=== PATIENT | female | born 1965 | race Two or more races ===

== ENCOUNTER 2017-08-14 17:27 | Emergency (ER) | payer MEDICAID ==
[~2017-08-14] VITALS: Ht 167.6 cm; Wt 86.6 kg
[2017-08-14] MEDS ORDERED: ASPirin 325 MG TAB PO ONE (18:15)
[2017-08-14 18:20] LABS: Basophils # (auto) 0 uL; Basophils % (auto) 0.5 % (0.0-2.0); Eosinophils # (auto) 0 uL; Eosinophils % (auto) 0.6 % (0.0-7.0); Hematocrit 41.6 % (36.0-46.0); Hemoglobin 14.1 g/dL (12.2-16.2); Lymphocytes # (auto) 1.7 uL; Lymphocytes % (auto) 24.5 % (10.0-50.0); Mean Corpuscular Hemoglobin 31.2 pg (28.0-32.0); Mean Corpuscular Volume 91.7 fL (80.0-100.0); Monocytes # (auto) 0.3 uL; Monocytes % (auto) 4.9 % (0.0-12.0); Neutrophils # (auto) 4.7 uL; Neutrophils % (auto) 69.5 % (37.0-80.0); Nucleated Red Blood Cells % 0.1 %; Platelet Count (auto) 153 10^3/uL (140-450); Red Blood Cells 4.54 10^6/uL (4.0-5.20); Red Cell Distribution Width 12.7 % (11.8-14.3); White Blood Cell 6.8 10^3/uL (4.4-10.8)
[2017-08-14 18:37] LABS: Alanine Aminotransferase 39 U/L (13-56); Albumin 3.7 g/dL (3.4-5.0); Anion Gap 10 (5-15); Aspartate Aminotransferase 30 U/L (15-37); BUN/Creatinine Ratio 17.6; Blood Urea Nitrogen 13 mg/dL (7-18); Carbon Dioxide 24 mmol/L (21-32); Chloride 104 mmol/L (98-107); GFR African American 106 mL/min; GFR Non-African American 87 mL/min; Glucose 145 mg/dL (74-106); Magnesium 1.9 mg/dL (1.6-2.6); Potassium 3.4 mmol/L (3.5-5.1); Sodium 138 mmol/L (136-145)
[2017-08-14 18:42] LABS: Alkaline Phosphatase 136 U/L (45-117); Bilirubin, Total 0.3 mg/dL (0.2-1.0); Total Protein 7.9 g/dL (6.4-8.2)
[2017-08-14 18:47] LABS: Urine Bacteria NONE SEEN /hpf (None Seen); Urine Blood Negative /uL (Negative); Urine Specific Gravity 1.016 (1.001-1.035); Urine WBC <1 /hpf (0 - 5)
[2017-08-14 21:20] VITALS: BP 131/77
== END 2017-08-14 21:20 | disposition home or self-care (01) ==
LOC: ER 17:35
DX: R07.89 Other chest pain (principal); F41.9 Anxiety disorder, unspecified; E11.9 Type 2 diabetes mellitus without complications; I10 Essential (primary) hypertension; Z79.82 Long term (current) use of aspirin
CPT/HCPCS: 36415; 71045; 80053; 81001; 83735; 84484; 85025; 93005

== ENCOUNTER 2018-09-30 20:09 | Emergency (ER) | payer MEDICAID ==
[~2018-09-30] VITALS: Ht 165.1 cm; Wt 84.4 kg
[2018-09-30 22:49] LABS: Basophils # (auto) 0 uL; Basophils % (auto) 0.7 % (0.0-2.0); Eosinophils # (auto) 0.2 uL; Eosinophils % (auto) 2.9 % (0.0-7.0); Hematocrit 43.1 % (36.0-46.0); Hemoglobin 14.3 g/dL (12.2-16.2); Lymphocytes % (auto) 34.1 % (10.0-50.0); Mean Corpuscular Hemoglobin 30.6 pg (28.0-32.0); Mean Corpuscular Hgb Conc. 33.2 g/dL (32.0-36.0); Mean Corpuscular Volume 92.3 fL (80.0-100.0); Monocytes # (auto) 0.4 uL; Monocytes % (auto) 7.6 % (0.0-12.0); Neutrophils # (auto) 3.2 uL; Neutrophils % (auto) 54.7 % (37.0-80.0); Nucleated Red Blood Cells % 0.1 %; Platelet Count (auto) 141 10^3/uL (140-450); Red Blood Cells 4.66 10^6/uL (4.0-5.20); Red Cell Distribution Width 12.8 % (11.8-14.3); White Blood Cell 5.8 10^3/uL (4.4-10.8)
[2018-09-30 22:55] LABS: Urine Bacteria NONE SEEN /hpf (None Seen); Urine Blood Negative /uL (Negative); Urine Specific Gravity 1.001 (1.001-1.035); Urine WBC 1 /hpf (0 - 5)
[2018-09-30 23:06] LABS: Albumin 3.8 g/dL (3.4-5.0); Anion Gap 7 (5-15); BUN/Creatinine Ratio 16.4; Blood Urea Nitrogen 10 mg/dL (7-18); Carbon Dioxide 27 mmol/L (21-32); Chloride 107 mmol/L (98-107); GFR African American 131 mL/min; GFR Non-African American 109 mL/min; Glucose 103 mg/dL (74-106); Magnesium 2.3 mg/dL (1.6-2.6); Potassium 3.3 mmol/L (3.5-5.1); Sodium 141 mmol/L (136-145)
[2018-09-30 23:24] LABS: Alanine Aminotransferase 34 U/L (13-56); Alkaline Phosphatase 113 U/L (45-117); Aspartate Aminotransferase 24 U/L (15-37); Bilirubin, Total 0.5 mg/dL (0.2-1.0); Total Protein 7.4 g/dL (6.4-8.2)
[2018-10-01 06:22] VITALS: BP 97/62
== END 2018-10-01 06:54 | disposition home or self-care (01) ==
LOC: ER 20:11
DX: R07.89 Other chest pain (principal); E87.6 Hypokalemia; M79.602 Pain in left arm; R10.9 Unspecified abdominal pain; E11.9 Type 2 diabetes mellitus without complications; E78.5 Hyperlipidemia, unspecified; I10 Essential (primary) hypertension
CPT/HCPCS: 36415; 71046; 80053; 81001; 81025; 83735; 84443; 84484; 85025; 93005

== ENCOUNTER 2021-09-11 14:11 | Emergency (ER) | payer MEDICAID ==
[~2021-09-11] VITALS: Ht 165.1 cm; Wt 79.4 kg
[2021-09-11 15:38] LABS: Basophils # (auto) 0 10 ^3/uL (0-0.2); Basophils % (auto) 0.6 % (0.0-2.0); Eosinophils # (auto) 0.1 10 ^3/uL (0-0.8); Hemoglobin 13.5 g/dL (12.2-16.2); Lymphocytes # (auto) 0.9 10 ^3/uL (0.4-5.4); Lymphocytes % (auto) 18.3 % (10.0-50.0); Mean Corpuscular Hemoglobin 30.5 pg (28.0-32.0); Mean Corpuscular Hgb Conc. 33.8 g/dL (32.0-36.0); Mean Corpuscular Volume 90.1 fL (80.0-100.0); Monocytes # (auto) 0.3 10 ^3/uL (0-1.3); Neutrophils # (auto) 3.7 10 ^3/uL (1.6-8.6); Neutrophils % (auto) 74.1 % (37.0-80.0); Nucleated Red Blood Cells % 0.1 %; Red Blood Cells 4.43 10^6/uL (4.0-5.20); Red Cell Distribution Width 14.3 % (11.8-14.3)
[2021-09-11 15:52] LABS: Anion Gap 6 (5-15); Blood Urea Nitrogen 10 mg/dL (7-18); Calcium 9.1 mg/dL (8.5-10.1); Carbon Dioxide 25 mmol/L (21-32); Chloride 107 mmol/L (98-107); Glucose 118 mg/dL (74-106); Potassium 3.6 mmol/L (3.5-5.1); Sodium 138 mmol/L (136-145)
[2021-09-11 15:57] LABS: Alanine Aminotransferase 33 U/L (13-56); Alkaline Phosphatase 89 U/L (45-117); Aspartate Aminotransferase 19 U/L (15-37); BUN/Creatinine Ratio 15.2; Bilirubin, Total 0.6 mg/dL (0.2-1.0); GFR African American 119 mL/min; GFR Non-African American 98 mL/min; Total Protein 7.6 g/dL (6.4-8.2)
[2021-09-11] MEDS ORDERED: ALPR0.5T PO (16:37)
[2021-09-11 16:45] VITALS: BP 140/80
== END 2021-09-11 16:46 | disposition home or self-care (01) ==
LOC: ER 14:11
DX: R00.2 Palpitations (principal); F41.9 Anxiety disorder, unspecified; E11.9 Type 2 diabetes mellitus without complications; E78.5 Hyperlipidemia, unspecified; I10 Essential (primary) hypertension
CPT/HCPCS: 36415; 71046; 80053; 83735; 84443; 84484; 85025; 93005

== ENCOUNTER 2022-04-11 13:16 | Emergency (ER) | payer MEDICAID ==
[~2022-04-11] VITALS: Ht 167.6 cm; Wt 77.2 kg
[~2022-04-11 13:16] MED LIST: ALPR0.5T PO; NAP500T PO
[2022-04-11 15:00] VITALS: BP 122/87
[2022-04-11] MEDS ORDERED: KETOROLAC TROMETH 60MG/2ML VIAL IM ONE (15:30)
[2022-04-11] MEDS ORDERED: IBUP800T27 PO (16:11)
== END 2022-04-11 16:14 | disposition home or self-care (01) ==
LOC: ER 13:20
DX: M75.32 Calcific tendinitis of left shoulder (principal); E11.9 Type 2 diabetes mellitus without complications; I10 Essential (primary) hypertension; E78.5 Hyperlipidemia, unspecified
CPT/HCPCS: 73030; 93005; 96372; 99283; J1885

== ENCOUNTER 2022-07-21 17:26 | Emergency (ER) | payer MEDICAID ==
[~2022-07-21 17:26] MED LIST changes: +IBUP800T27 PO
[2022-07-21] MEDS ORDERED: PANTOPRAZOLE 40 MG TAB PO ONE (21:00)
[2022-07-21] MEDS ORDERED: PANT40TA2 PO (21:00)
[2022-07-21 22:55] VITALS: BP 131/72
== END 2022-07-21 22:57 | disposition home or self-care (01) ==
LOC: ER 17:26
DX: T18.108A Unspecified foreign body in esophagus causing other injury, initial encounter (principal); K21.9 Gastro-esophageal reflux disease without esophagitis; E11.9 Type 2 diabetes mellitus without complications; E78.5 Hyperlipidemia, unspecified; I10 Essential (primary) hypertension; W22.8XXA Striking against or struck by other objects, initial encounter; Y93.89 Activity, other specified; Y92.89 Other specified places as the place of occurrence of the external cause; Y99.8 Other external cause status
CPT/HCPCS: 70360

== ENCOUNTER 2022-08-22 18:41 | Emergency (ER) | payer MEDICAID ==
[~2022-08-22] VITALS: Ht 167.6 cm; Wt 77.2 kg
[~2022-08-22 18:41] MED LIST changes: +PANT40TA2 PO
[2022-08-22] MEDS ORDERED: traMADol HCL 50 MG TAB PO ONE (19:15)
[2022-08-22 19:31] LABS: Basophils # (auto) 0 10 ^3/uL (0-0.2); Basophils % (auto) 0.7 % (0.0-2.0); Eosinophils # (auto) 0.1 10 ^3/uL (0-0.8); Eosinophils % (auto) 1.6 % (0.0-7.0); Hematocrit 39.8 % (36.0-46.0); Hemoglobin 13.4 g/dL (12.2-16.2); Lymphocytes # (auto) 1.7 10 ^3/uL (0.4-5.4); Lymphocytes % (auto) 27.2 % (10.0-50.0); Mean Corpuscular Hemoglobin 30.4 pg (28.0-32.0); Mean Corpuscular Hgb Conc. 33.8 g/dL (32.0-36.0); Mean Corpuscular Volume 89.9 fL (80.0-100.0); Monocytes # (auto) 0.4 10 ^3/uL (0-1.3); Neutrophils % (auto) 63.5 % (37.0-80.0); Red Blood Cells 4.42 10^6/uL (4.0-5.20); Red Cell Distribution Width 13.2 % (11.8-14.3); White Blood Cell 6.3 10^3/uL (4.4-10.8)
[2022-08-22 19:44] LABS: Urine Bacteria FEW /hpf (None Seen); Urine Blood Negative /uL (Negative); Urine Mucus FEW (None Seen); Urine Specific Gravity 1.007 (1.001-1.035); Urine WBC 2 /hpf (0 - 5)
[2022-08-22 19:44] LABS: Calcium 9.1 mg/dL (8.5-10.1); Potassium 3.7 mmol/L (3.5-5.1)
[2022-08-22 19:47] LABS: BUN/Creatinine Ratio 13.3; Bilirubin, Total 0.6 mg/dL (0.2-1.0); Total Protein 7.4 g/dL (6.4-8.2)
[2022-08-22] MEDS ORDERED: TRAM50TA2 PO (22:54)
[2022-08-22 23:00] VITALS: BP 114/69
== END 2022-08-22 23:10 | disposition home or self-care (01) ==
LOC: ER 18:41
DX: K80.20 Calculus of gallbladder without cholecystitis without obstruction (principal); I10 Essential (primary) hypertension; E11.9 Type 2 diabetes mellitus without complications; E78.5 Hyperlipidemia, unspecified; Z79.1 Long term (current) use of non-steroidal anti-inflammatories (NSAID); Z79.899 Other long term (current) drug therapy
CPT/HCPCS: 36415; 74176; 80053; 81001; 83690; 85025; 93005

== ENCOUNTER 2022-11-19 12:26 | Emergency (ER) | payer MEDICAID ==
[~2022-11-19] VITALS: Ht 167.6 cm; Wt 73.0 kg
[~2022-11-19 12:26] MED LIST changes: +TRAM50TA2 PO
[2022-11-19 13:58] LABS: Basophils # (auto) 0 10 ^3/uL (0-0.2); Basophils % (auto) 0.8 % (0.0-2.0); Eosinophils # (auto) 0 10 ^3/uL (0-0.8); Hematocrit 39.4 % (36.0-46.0); Hemoglobin 13.2 g/dL (12.2-16.2); Lymphocytes # (auto) 1.1 10 ^3/uL (0.4-5.4); Mean Corpuscular Hemoglobin 29.9 pg (28.0-32.0); Mean Corpuscular Hgb Conc. 33.6 g/dL (32.0-36.0); Monocytes # (auto) 0.4 10 ^3/uL (0-1.3); Monocytes % (auto) 8.2 % (0.0-12.0); Red Blood Cells 4.43 10^6/uL (4.0-5.20); White Blood Cell 4.5 10^3/uL (4.4-10.8)
[2022-11-19 14:19] LABS: Albumin 3.9 g/dL (3.4-5.0); Calcium 9.2 mg/dL (8.5-10.1); Potassium 3.7 mmol/L (3.5-5.1)
[2022-11-19 14:22] LABS: BUN/Creatinine Ratio 15.5 (10.0-20.0); Bilirubin, Total 0.4 mg/dL (0.2-1.0)
[2022-11-19 14:50] VITALS: BP 121/65
[2022-11-19] MEDS ORDERED: ACET1CAP14 PO (15:25)
[2022-11-19] MEDS ORDERED: hydrOXYzine 25 MG TAB or CAP PO ONE (16:00)
== END 2022-11-19 16:16 | disposition home or self-care (01) ==
LOC: ER 12:26
DX: R07.89 Other chest pain (principal); F41.9 Anxiety disorder, unspecified; I10 Essential (primary) hypertension; E11.9 Type 2 diabetes mellitus without complications; E78.5 Hyperlipidemia, unspecified; Z79.1 Long term (current) use of non-steroidal anti-inflammatories (NSAID); Z79.899 Other long term (current) drug therapy
CPT/HCPCS: 36415; 80053; 83690; 84484; 85025; 93005

== ENCOUNTER → 2023-02-11 | Outpatient (CLI) | payer MEDICAID ==
[~2023-02-11] MED LIST changes: +ACET1CAP14 PO; +IBUP-1456 PO; -IBUP800T27 PO
== END | disposition home or self-care (01) ==
LOC: Rad HDHVI 13:08
PROVIDERS: ATTEND Internal Medicine Cardiovascular Disease
DX: R00.2 Palpitations (principal)
CPT/HCPCS: 93306

== ENCOUNTER → 2023-02-23 | Outpatient (CLI) | payer MEDICAID ==
[~2023-02-23] VITALS: Ht 165.1 cm; Wt 74.4 kg
== END | disposition home or self-care (01) ==
LOC: Rad HDHVI 12:57
PROVIDERS: ATTEND Internal Medicine Cardiovascular Disease
DX: Z01.810 Encounter for preprocedural cardiovascular examination (principal); R07.9 Chest pain, unspecified; E11.42 Type 2 diabetes mellitus with diabetic polyneuropathy; I10 Essential (primary) hypertension; E78.00 Pure hypercholesterolemia, unspecified
CPT/HCPCS: 78452; 93017; 96374; A9500

== ENCOUNTER 2023-08-06 19:29 | Emergency (ER) | payer MEDICAID ==
[~2023-08-06] VITALS: Ht 167.6 cm; Wt 78.1 kg
[2023-08-06] MEDS ORDERED: MAALOX PLUS or MAALOX 30 ML PO ONE (20:15)
[2023-08-06] MEDS ORDERED: LIDOCAINE VISCOUS 2% 15ML UD PO ONE (20:15)
[2023-08-06] MEDS ORDERED: DONNATAL 5ml ORAL Elix (BELLADONNA ALK-PHENOBARB) PO ONE (20:15)
[2023-08-06] MEDS ORDERED: PANT40TA2 PO (20:35)
[2023-08-06 20:40] LABS: Chloride 109 mmol/L (98-107); Sodium 141 mmol/L (136-145)
[2023-08-06 20:41] LABS: Anion Gap 5 (5-15); Carbon Dioxide 27 mmol/L (20-30)
[2023-08-06 20:42] LABS: Calcium 9.9 mg/dL (8.5-10.1)
[2023-08-06 20:46] LABS: BUN/Creatinine Ratio 16.9 (10.0-20.0); Blood Urea Nitrogen 10 mg/dL (9-23); Glucose 104 mg/dL (74-106)
[2023-08-06 20:47] VITALS: BP 116/68; PULSE 75; RESP 16; TEMP 97.8; O2SAT 96
[2023-08-06 20:50] LABS: Basophils # (auto) 0 10 ^3/uL (0-0.2); Basophils % (auto) 0.8 % (0.0-2.0); Eosinophils # (auto) 0.2 10 ^3/uL (0-0.8); Eosinophils % (auto) 3.2 % (0.0-7.0); Hematocrit 39.3 % (36.0-46.0); Hemoglobin 13.1 g/dL (12.2-16.2); Lymphocytes # (auto) 1.9 10 ^3/uL (0.4-5.4); Lymphocytes % (auto) 33.9 % (10.0-50.0); Mean Corpuscular Hemoglobin 30.7 pg (28.0-32.0); Mean Corpuscular Hgb Conc. 33.4 g/dL (32.0-36.0); Mean Corpuscular Volume 91.9 fL (80.0-100.0); Monocytes # (auto) 0.4 10 ^3/uL (0-1.3); Monocytes % (auto) 7.6 % (0.0-12.0); Neutrophils % (auto) 54.5 % (37.0-80.0); Nucleated Red Blood Cells % 0.1 %; Red Blood Cells 4.28 10^6/uL (4.0-5.20); Red Cell Distribution Width 13.1 % (11.8-14.3); White Blood Cell 5.5 10^3/uL (4.4-10.8)
== END 2023-08-06 22:09 | disposition home or self-care (01) ==
LOC: ER 19:29
DX: K29.70 Gastritis, unspecified, without bleeding (principal); E11.9 Type 2 diabetes mellitus without complications; E78.5 Hyperlipidemia, unspecified; I10 Essential (primary) hypertension; Z90.49 Acquired absence of other specified parts of digestive tract
CPT/HCPCS: 36415; 80048; 84484; 85025; 93005

== ENCOUNTER 2023-12-10 10:01 | Emergency (ER) | payer MEDICAID ==
[~2023-12-10] VITALS: Ht 165.1 cm; Wt 77.0 kg
[2023-12-10 10:18] LABS: Basophils # (auto) 0 10 ^3/uL (0-0.2); Basophils % (auto) 0.6 % (0.0-2.0); Eosinophils # (auto) 0.1 10 ^3/uL (0-0.8); Eosinophils % (auto) 1.5 % (0.0-7.0); Hematocrit 39.6 % (36.0-46.0); Hemoglobin 13.2 g/dL (12.2-16.2); Lymphocytes # (auto) 0.9 10 ^3/uL (0.4-5.4); Lymphocytes % (auto) 19.9 % (10.0-50.0); Mean Corpuscular Hemoglobin 30.5 pg (28.0-32.0); Mean Corpuscular Hgb Conc. 33.3 g/dL (32.0-36.0); Mean Corpuscular Volume 91.8 fL (80.0-100.0); Monocytes # (auto) 0.3 10 ^3/uL (0-1.3); Neutrophils # (auto) 3.1 10 ^3/uL (1.6-8.6); Nucleated Red Blood Cells % 0.1 %; Red Blood Cells 4.31 10^6/uL (4.0-5.20); Red Cell Distribution Width 13.6 % (11.8-14.3); White Blood Cell 4.4 10^3/uL (4.4-10.8)
[2023-12-10 10:44] LABS: Alanine Aminotransferase 23 U/L (7-40); Albumin 4.5 g/dL (3.2-4.8); Alkaline Phosphatase 88 U/L (46-116); Anion Gap 3 (5-15); Aspartate Aminotransferase 15 U/L (13-40); BUN/Creatinine Ratio 12.9 (10.0-20.0); Bilirubin, Total 0.5 mg/dL (0.2-1.0); Blood Urea Nitrogen 8 mg/dL (9-23); Calcium 9.9 mg/dL (8.5-10.1); Carbon Dioxide 29 mmol/L (20-30); Chloride 107 mmol/L (98-107); Glucose 170 mg/dL (74-106); Potassium 3.6 mmol/L (3.5-5.1); Sodium 139 mmol/L (136-145)
[2023-12-10 10:45] LABS: Total Protein 7.1 g/dL (5.7-8.2)
[2023-12-10 15:34] VITALS: BP 119/72; PULSE 64; RESP 20; TEMP 97.8; O2SAT 99
== END 2023-12-10 15:47 | disposition home or self-care (01) ==
LOC: ER 10:01
DX: R07.89 Other chest pain (principal); I10 Essential (primary) hypertension; E78.5 Hyperlipidemia, unspecified; E11.9 Type 2 diabetes mellitus without complications; Z90.49 Acquired absence of other specified parts of digestive tract
CPT/HCPCS: 36415; 71045; 80053; 84484; 85025; 85379; 93005

== ENCOUNTER 2025-07-01 15:37 | Emergency (ER) | payer MEDICAID ==
[~2025-07-01] VITALS: Ht 165.1 cm; Wt 79.7 kg
--- NOTE | 2025-07-01 17:13 | ED.PDOC ---
Psychiatric HPI Comments HPI: This is a 60 year old female presenting to the ED with chief complaint of anxiety. Patient reports that she has been having an increased in frequency of panic attacks for the past 3 weeks. Patient relays that her last on prior to these episodes was a year ago. Patient states she was previously prescribed medication for her anxiety, however, she was scared to take them and they have since . Patient notes associated right sided chest pain at this time. Patient denies any SI, HI, recent stress, dizziness, or headache. Past Medical History: HTN, HLD, DM Past Surgical History: Right Knee surgery, , Cholecystectomy Social History: Denies smoking, ETOH, or drug use. Medications: Reviewed. Allergies: NKDA cervantes: anxiety normal HPI: Poor Historian. REVIEW OF SYSTEMS: CONSTITUTIONAL: Denies acute: fever, diaphoresis, chills, generalized weakness. HEAD: Denies acute: headache, photophobia Eyes: Denies acute: Double vision, vision loss, eye pain, eye discharge. EARS: Denies acute: tinnitus, hearing loss, ear discharge, ear pain, THROAT: Denies acute: sore throat, swelling, difficulty swallowing , pain with swallowing, change in voice. NECK: Denies acute: neck pain, neck swelling, stiff neck. HEART: Denies acute : chest pain, palpitations, LUNGS: Denies acute: SOB, wheezing, cough, hemoptysis ABDOMEN: Denies acute: abdominal pain, Nausea, Vomiting, diarrhea, melena , hematemesis, hematochezia SKIN: Denies acute: rash, redness, lesions, itchiness. EXTREMITIES: Denies acute: calf pain, numbness, tingling, weakness, denies pain in extremity. Denies acute: Low back pain. Neuro: Denies acute: focal neurological deficit, motor or sensory focal neurological deficit, tremors, seizure like activity, confusion, dizziness, change in mental status, loss of bowel or bladder function, cauda equina like symptoms. : Denies acute: dysuria, hematuria, flank pain, increase in urinary frequency. PSYCH: Denies acute: hallucination, suicidal ideation, homicidal ideation. FEMALE: Denies acute: abnormal vaginal bleeding, foul odor, unusual discharge. PHYSICAL EXAM: General: ---mild-----acute distress, awake and alert. Head: normocephalic, atraumatic. No raccoon's eyes, no blackburn sign. Neck: supple, trachea is midline, no swelling. Throat: Normal phonation. Eyes:, no erythema, no purulent discharge, no proptosis, no icterus. Heart: regular rate, regular rhythm, no significant murmur appreciated. Lungs: no apparent respiratory distress, Able to speak in full sentences. No wheezing, no rhonchi, no crackles. No stridors Clear to auscultation bilaterally. Abdomen: non tender to palpation, non distended, soft, no guarding, no rebound, + bowel sounds. Neuro: Awake, Alert, oriented to name, self, situation, follows commands GCS=15. Speech is normal. Skin: no petechia, no purpura, no cyanosis, non-pale, not jaundice. Lower extremities: --no - Pitting edema no deformity, no focal swelling, no calf TTP. Makes eye contact. moves all four extremities. Face: no apparent facial droop. Ambulating in the ED independently. ED COURSE: DISCLAIMER: This medical document was created using an electronic medical record system with voice recognition software and computerized dictation system. Although this document has been carefully reviewed, there might still be some phonetic and typographical errors. Occasional wrong-word or "sound-alike" substitutions may have occurred due to the inherent limitations of voice recognition software. These areas are purely typographical due to imperfections of the software programs and do not reflect any compromise in the patient's medical care. Please read the chart carefully and recognize, using context, where these substitutions have occurred. Chief Complaint: Anxiety Time Seen by MD: 17:09 Primary Care Provider: [facility] Reviewed Notes: Medications, Allergies Information Source: Patient Mode of Arrival: Ambulatory Was a procedure done? Was a procedure done?: No Psych Differential Dx Psych. Differential Dx: Anxiety X-Ray, Labs, Meds, VS Vital Signs Date Time Temp Pulse Resp B/P (MAP) Pulse Ox O2 Delivery O2 Flow Rate FiO2 07/01/25 15:42 98.2 101 16 162/90 98 98.2 Lab Test 07/01/25 17:35 Range/Units White Blood Count 5.6 4.4-10.8 10^3/uL Red Blood Count 4.57 4.0-5.20 10^6/uL Hemoglobin 14.2 12.2-16.2 g/dL Hematocrit 41.8 36.0-46.0 % Mean Corpuscular Volume 91.4 80.0-100.0 fL Mean Corpuscular Hemoglobin 31.0 28.0-32.0 pg Mean Corpuscular Hemoglobin Concent 33.9 32.0-36.0 g/dL Red Cell Distribution Width 12.7 11.8-14.3 % Platelet Count 155 140-450 10^3/uL Mean Platelet Volume 9.8 6.9-10.8 fL Neutrophils (%) (Auto) 71.8 37.0-80.0 % Lymphocytes (%) (Auto) 19.3 10.0-50.0 % Monocytes (%) (Auto) 7.0 0.0-12.0 % Eosinophils (%) (Auto) 1.3 0.0-7.0 % Basophils (%) (Auto) 0.6 0.0-2.0 % Neutrophils # (Auto) 4.0 1.6-8.6 10 ^3/uL Lymphocytes # (Auto) 1.1 0.4-5.4 10 ^3/uL Monocytes # (Auto) 0.4 0-1.3 10 ^3/uL Eosinophils # (Auto) 0.1 0-0.8 10 ^3/uL Basophils # (Auto) 0 0-0.2 10 ^3/uL Nucleated Red Blood Cells 0.0 % Sodium Level 141 136-145 mmol/L Potassium Level 4.0 3.5-5.1 mmol/L Chloride Level 103 98-107 mmol/L Carbon Dioxide Level 29 20-31 mmol/L Anion Gap 9 5-15 Blood Urea Nitrogen 10 9-23 mg/dL Creatinine 0.71 0.550-1.02 mg/dL Glomerular Filtration Rate Calc 97 >90 mL/min BUN/Creatinine Ratio 14.1 10.0-20.0 Serum Glucose 146 H 74-106 mg/dL Calcium Level 9.7 8.7-10.4 mg/dL Total Bilirubin 0.4 0.2-1.0 mg/dL Aspartate Amino Transferase (AST) 26 13-40 U/L Alanine Aminotransferase (ALT) 31 7-40 U/L Alkaline Phosphatase 119 H 46-116 U/L Troponin I High Sensitivity < 3 L </=34 ng/L Total Protein 7.2 5.7-8.2 g/dL Albumin 4.7 3.2-4.8 g/dL Departure 1 Departure Time of Disposition: 18:28 Impression: Primary Impression: Acute anxiety Additional Impression: Panic attack Disposition: 01 HOME / SELF CARE / HOMELESS Condition: Stable Additional Instructions: Additional instructions: Please read all instructions provided in this packet carefully. You MUST follow-up with your primary care/family doctor in 1 to 2 days. If you are unable to see your primary care/family doctor, please return to our emergency room for re-assessment and re-evaluation in 1 to 2 days. Return to the emergency room here in our facility or to the nearest ER [facility] if your symptoms change or worsen. CONSULTATIONS: you MUST Follow-up for consultation as soon as possible with: -Psychiatry in 1-2 days. Please call for appointment. You MUST call the consultants office yourself to make an appointment. You may need to arrange that through your insurance and/or your primary/family doctor. If you are unable to see the senior compensation consultant in 1 to 2 days, you must return to our emergency room (or any other ER of your choice) for re-assessment and re- evaluation. Adequate fluid hydration. Although you have been discharged from the Emergency Department, this does not mean that you have a "clean bill of health". No definitive diagnosis for your symptoms has been made today. It is possible that you are in the process of developing a serious illness. This is why you must return to the ED without fail if any new or worsening symptoms develop. Discharged With: Self Critical Care Note Critical Care Time?: No I personally scribed for RYAN MANN DO ([email or web address]) on 07/01/25 at 17:13. Electronically submitted by Jalen Mario ([email or web address]). RYAN MANN DO Jul 01, 2025 17:13
[2025-07-01 17:48] LABS: Hematocrit 41.8 % (36.0-46.0); Hemoglobin 14.2 g/dL (12.2-16.2); Mean Corpuscular Hemoglobin 31.0 pg (28.0-32.0); Mean Corpuscular Volume 91.4 fL (80.0-100.0); Nucleated Red Blood Cells % 0.0 %
[2025-07-01 18:04] LABS: Alanine Aminotransferase 31 U/L (7-40); Albumin 4.7 g/dL (3.2-4.8); Anion Gap 9 (5-15); BUN/Creatinine Ratio 14.1 (10.0-20.0); Bilirubin, Total 0.4 mg/dL (0.2-1.0); Blood Urea Nitrogen 10 mg/dL (9-23); Calcium 9.7 mg/dL (8.7-10.4); Carbon Dioxide 29 mmol/L (20-31); Chloride 103 mmol/L (98-107); Potassium 4.0 mmol/L (3.5-5.1); Sodium 141 mmol/L (136-145); Total Protein 7.2 g/dL (5.7-8.2)
[2025-07-01 18:15] LABS: Alkaline Phosphatase 119 U/L (46-116); Glucose 146 mg/dL (74-106)
[2025-07-01 19:05] VITALS: BP 119/74; PULSE 81; RESP 16; TEMP 98.5; O2SAT 94
[2025-07-01] MEDS: LORazepam 0.5 MG TAB PO ONE (19:28)
== END 2025-07-01 20:30 | disposition home or self-care (01) ==
LOC: ER 15:37
DX: F41.0 Panic disorder [episodic paroxysmal anxiety] (principal); E78.5 Hyperlipidemia, unspecified; I10 Essential (primary) hypertension; E11.9 Type 2 diabetes mellitus without complications; Z90.49 Acquired absence of other specified parts of digestive tract; Z98.890 Other specified postprocedural states
CPT/HCPCS: 36415; 80053; 84484; 85025